=== PATIENT | male | born 1990 | race Caucasian/White ===

== ENCOUNTER 2017-03-29 07:43 | Inpatient (IN) | payer MEDICAID ==
[~2017-03-29] VITALS: Ht 177.8 cm; Wt 79.4 kg
[2017-03-29 07:52] VITALS: BP_SYST 108
[2017-03-29 09:11] LABS: HEMATOCRIT 49.8 % (36-54); HEMOGLOBIN 16.2 g/dL (14.0-18.0); MEAN CORPUSCULAR HEMOGLOBIN 31 pg (27-31); MEAN CORPUSCULAR HGB CONC 33 % (32-36); MEAN CORPUSCULAR VOLUME 95 fL (79.0-98.0); PLATELET COUNT (AUTO) 229 K/uL (130-430); RED BLOOD CELL COUNT(AUTO) 5.22 MIL/uL (4.2-6.2); RED CELL DISTRIBUTION WIDTH 12.2 % (9.0-15.0)
[2017-03-29 09:18] LABS: WHITE BLOOD COUNT (AUTO) 18.1 K/uL (4.8-10.8)
[2017-03-29 09:24] LABS: CALCIUM 9.6 mg/dL (8.4-11.0); CREATININE 0.93 mg/dL (0.55-1.30); POTASSIUM 3.6 mmol/L (3.5-5.1)
[2017-03-29 09:30] LABS: ALBUMIN 4.8 g/dL (3.4-4.8); TOTAL BILIRUBIN 0.4 mg/dL (0.0-1.0)
[2017-03-29 09:31] LABS: INR 1.1 (0.80-1.20); PROTHROMBIN TIME 10.8 SECS (9.5-12.5)
[2017-03-29 09:52] LABS: BAND % (MANUAL) 5 % (0-6)
[2017-03-29 09:53] LABS: BASOPHILS % (MANUAL) 0 % (0-2); EOSINOPHILS % (MANUAL) 0 % (0-7); LYMPHOCYTES % (MANUAL) 10 % (20-46); MONOCYTES % (MANUAL) 3 % (0-11)
[2017-03-29 10:03] LABS: BILIRUBIN,URINE NEGATIVE (NEGATIVE); CLARITY/URINE SL HAZY (CLEAR); COLOR,URINE YELLOW (YELLOW); GLUCOSE,URINE NEGATIVE (NEGATIVE); KETONES,URINE 3+ (NEGATIVE); LEUKOCYTE ESTERASE ,URINE NEGATIVE (NEGATIVE); NITRITE, URINE NEGATIVE (NEGATIVE); PH,URINE 5.5 (5.0-8.0); PROTEIN URINE TRACE (NEGATIVE); UROBILINOGEN,URINE 0.2 (0.2-1.0)
[2017-03-29 10:04] LABS: BLOOD, URINE TRACE (NEGATIVE)
[2017-03-29 10:08] LABS: BACTERIA,URINE FEW /HPF (None Seen); RBC,URINE 0-3 /HPF (0-3); WBC,URINE 0-3 /HPF (0-3)
[2017-03-29 10:09] LABS: MUCUS,URINE 1+ /LPF (None Seen)
[2017-03-29] MEDS ORDERED: NACL 0.9% 1,000 ML IV ONE (10:30)
[2017-03-29] MEDS ORDERED: cefTRIAXone 1 GM IVPB PREMIX 50 ML IV ONE (10:30)
[2017-03-29] MEDS: cefTRIAXone 1 GM IVPB PREMIX 50 ML IV SCH (11:00)
[2017-03-29] MEDS ORDERED: ACETAMINOPHEN 325 MG TABLET PO PRN (11:00)
[2017-03-29] MEDS ORDERED: TEMAZEPAM 15 MG CAPSULE PO PRN (11:00)
[2017-03-29] MEDS ORDERED: MORPHINE 2 MG/ML INJ. SYRINGE IVP PRN (11:00)
[2017-03-29 11:36] VITALS: BP_SYST 121
[2017-03-29 11:44] VITALS: BP_SYST 121
[2017-03-29] MEDS ORDERED: FLU VACC QS 2017-18(36MOS+)/PF 0.5 ML/SYR SYRINGE I.M. PRN (12:00)
[2017-03-29] MEDS ORDERED: LORazepam 2 MG/ML VIAL IVP PRN (12:30)
[2017-03-29 15:35] VITALS: BP_SYST 122
[2017-03-29 18:18] LABS: BARBITURATE, URINE NEGATIVE (NEG <=200); BENZODIAZEPINE, URINE NEGATIVE (NEG <=150); CANNABINOID, URINE POSITIVE (NEG <=50); COCAINE, URINE NEGATIVE (NEG <=150); METHAMPHETAMINES SCREEN,URINE NEGATIVE (NEG <=500); OPIATE, URINE NEGATIVE (NEG <=100); PHENCYCLIDINE SCREEN,URINE NEGATIVE (NEG <=25); UR TRICYCLIC ANTIDEPRESSANTS NEGATIVE (NEG <=300); URINE AMPHETAMINE NEGATIVE (NEG <=500); URINE METHADONE NEGATIVE (NEG <=200); URINE OXYCODONE SCREEN NEGATIVE (NEG <=100); URINE PROPOXYPHENE SCREEN NEGATIVE (NEG <=300)
[2017-03-29 20:00] VITALS: BP_SYST 111; BP_SYST 116; BP_SYST 127
[2017-03-30] VITALS: BP_SYST 113
[2017-03-30 04:45] VITALS: BP_SYST 111
[2017-03-30 06:49] LABS: CALCIUM 9.4 mg/dL (8.4-11.0); CREATININE 0.78 mg/dL (0.55-1.30); POTASSIUM 3.9 mmol/L (3.5-5.1)
[2017-03-30 06:56] LABS: ALBUMIN 4.3 g/dL (3.4-4.8); TOTAL BILIRUBIN 0.7 mg/dL (0.0-1.0)
[2017-03-30 07:19] LABS: BASOPHILS % (AUTO) 0.3 % (0.0-2.0); EOSINOPHILS # (AUTO) 0.2 K/uL (0.0-0.4); EOSINOPHILS % (AUTO) 2.2 % (0.0-4.0); HEMATOCRIT 48.1 % (36-54); HEMOGLOBIN 15.6 g/dL (14.0-18.0); LYMPHOCYTES # (AUTO) 1.4 K/uL (1.0-5.5); LYMPHOCYTES % (AUTO) 16.2 % (20.5-51.5); MEAN CORPUSCULAR HEMOGLOBIN 31 pg (27-31); MEAN CORPUSCULAR HGB CONC 33 % (32-36); MEAN CORPUSCULAR VOLUME 95 fL (79.0-98.0); MONOCYTES # (AUTO) 0.7 K/uL (0.0-1.0); MONOCYTES % (AUTO) 7.5 % (1.7-9.3); NEUTROPHILS # (AUTO) 6.6 K/uL (1.8-7.7); NEUTROPHILS % (AUTO) 73.8 % (40.0-70.0); PLATELET COUNT (AUTO) 268 K/uL (130-430); RED BLOOD CELL COUNT(AUTO) 5.04 MIL/uL (4.2-6.2); RED CELL DISTRIBUTION WIDTH 12.1 % (9.0-15.0)
[2017-03-30 07:53] LABS: WHITE BLOOD COUNT (AUTO) 8.9 K/uL (4.8-10.8)
[2017-03-30 08:10] VITALS: BP_SYST 113
[2017-03-30] MEDS: cefTRIAXone 1 GM IVPB PREMIX 50 ML IV SCH (11:01)
[2017-03-30 11:35] VITALS: BP_SYST 125
[2017-03-30 11:36] VITALS: BP_SYST 113
== END 2017-03-30 14:00 | disposition home or self-care (01) | DRG 204 ==
LOC: SED 07:43 → STU 11:06
PROVIDERS: ADMIT Internal Medicine Hospice and Palliative Medicine; ATTEND Internal Medicine Hospice and Palliative Medicine
DX: R55 Syncope and collapse (principal); D72.829 Elevated white blood cell count, unspecified; R53.1 Weakness; F12.90 Cannabis use, unspecified, uncomplicated; W18.2XXA Fall in (into) shower or empty bathtub, initial encounter; Y93.E1 Activity, personal bathing and showering
CPT/HCPCS: 36415; 70450-TC; 70551; 71010; 80053; 80307; 81000-TC; 83605; 84484; 85007; 85025; 85027; 85610-TC; 85730-TC; 87040-TC; 87086; 93005; 93306; 96365; 99285; J0696; J7030; J7050; Q2037

== ENCOUNTER 2017-07-19 08:02 | Emergency (ER) | payer SELFPAY ==
[~2017-07-19] VITALS: Ht 177.8 cm; Wt 68.0 kg
[2017-07-19 08:06] VITALS: BP_SYST 121
--- NOTE | 2017-07-19 08:11 | NUR ---
Patient to ER bed 7 to gown for evaluation. Side rails up. Report given to Phillip HERNANDEZ.
--- NOTE | 2017-07-19 08:13 | NUR ---
Pt complains of abdominal pain, 01/28 since last Wednesday. Pt states he was able to have a small bowel movement this morning but after his abdomen started hurting even more. Pt denies N/V, diarrhea, or fever. Pt also complains of weakness and dizziness. Pt is AAO x 4 and ambulatory. No other injuries/complaints per patient or noted.
--- NOTE | 2017-07-19 08:20 | NUR ---
ER Dr. Edwards at bedside examining patient.
--- NOTE | 2017-07-19 08:39 | NUR ---
# 20 gauge angiocath placed to LAC. Use of asceptic technique. Opsite placed over site. Blood return noted. Blood for lab drawn from site. Flushed with 10 cc of normal saline. No evidence of infiltration noted. Patient tolerated well.
--- NOTE | 2017-07-19 08:39 | NUR ---
Pt went to radiology in stable condition.
[2017-07-19 08:44] LABS: BILIRUBIN,URINE NEGATIVE (NEGATIVE); BLOOD, URINE NEGATIVE (NEGATIVE); CLARITY/URINE CLEAR (CLEAR); COLOR,URINE YELLOW (YELLOW); GLUCOSE,URINE NEGATIVE (NEGATIVE); KETONES,URINE NEGATIVE (NEGATIVE); LEUKOCYTE ESTERASE ,URINE NEGATIVE (NEGATIVE); NITRITE, URINE NEGATIVE (NEGATIVE); PH,URINE 8.5 (5.0-8.0); PROTEIN URINE NEGATIVE (NEGATIVE); UROBILINOGEN,URINE 0.2 (0.2-1.0)
--- NOTE | 2017-07-19 08:48 | NUR ---
Pt returned from radiology in stable condition.
[2017-07-19] MEDS: KETOROLAC TROMETHAMINE 30 MG VIAL IVP ONE (08:49)
[2017-07-19] MEDS: NACL 0.9% 1,000 ML IV ONE (08:51)
[2017-07-19 08:52] LABS: BASOPHILS % (AUTO) 0.3 % (0.0-2.0); EOSINOPHILS # (AUTO) 0.1 K/uL (0.0-0.4); EOSINOPHILS % (AUTO) 0.9 % (0.0-4.0); HEMATOCRIT 45.3 % (36-54); HEMOGLOBIN 15.1 g/dL (14.0-18.0); LYMPHOCYTES # (AUTO) 0.9 K/uL (1.0-5.5); LYMPHOCYTES % (AUTO) 11.2 % (20.5-51.5); MEAN CORPUSCULAR HEMOGLOBIN 31 pg (27-31); MEAN CORPUSCULAR HGB CONC 33 % (32-36); MEAN CORPUSCULAR VOLUME 93 fL (79.0-98.0); MONOCYTES # (AUTO) 0.4 K/uL (0.0-1.0); MONOCYTES % (AUTO) 5.3 % (1.7-9.3); NEUTROPHILS % (AUTO) 82.3 % (40.0-70.0); PLATELET COUNT (AUTO) 197 K/uL (130-430); RED BLOOD CELL COUNT(AUTO) 4.86 MIL/uL (4.2-6.2); WHITE BLOOD COUNT (AUTO) 8.4 K/uL (4.8-10.8)
--- NOTE | 2017-07-19 08:52 | NUR ---
Medications were given, pt tolerated well. No adverse reaction, will continue to monitor.
[2017-07-19 08:58] LABS: CALCIUM 9.2 mg/dL (8.4-11.0); CREATININE 0.81 mg/dL (0.55-1.30); POTASSIUM 3.6 mmol/L (3.5-5.1)
[2017-07-19 09:02] LABS: PROTHROMBIN TIME 10.4 SECS (9.5-12.5)
[2017-07-19 09:05] LABS: ALBUMIN 4.4 g/dL (3.4-4.8); TOTAL BILIRUBIN 0.4 mg/dL (0.0-1.0)
--- NOTE | 2017-07-19 10:04 | NUR ---
Patient given written and verbal discharge instructions and verbalizes understanding. ER MD discussed with patient the results and treatment provided. Patient in stable condition. ID arm band removed. IV catheter removed intact and dressing applied, no active bleeding. Rx of MIRALAX, MOTRIN given. Patient educated on pain management and to follow up with PMD. Pain Scale 2/10, MD AWARE. Opportunity for questions provided and answered.
[2017-07-19 10:05] VITALS: BP_SYST 121
== END 2017-07-19 10:04 | disposition home or self-care (01) ==
LOC: SED 08:02
DX: K59.00 Constipation, unspecified (principal)
CPT/HCPCS: 36415; 74176; 80053; 81003; 83690; 85025; 85610; 85730; 96361; 96374; 99285; J1885; J7030

== ENCOUNTER 2018-12-24 00:40 | Emergency (ER) | payer MEDICAID ==
[~2018-12-24] VITALS: Ht 175.3 cm; Wt 70.3 kg
[2018-12-24 00:49] VITALS: BP_SYST 123
--- NOTE | 2018-12-24 00:55 | NUR ---
Patient triaged and placed in waiting room. VSS and patient appears in no acute distress at this time. Accompanied by spouse, awaiting available bed, and MD notified of need for MSE.
--- NOTE | 2018-12-24 01:02 | NUR ---
Patient to ER bed 04 to gown for evaluation. Side rails up. Report given to MARY Orozco.
--- NOTE | 2018-12-24 01:03 | NUR ---
Patient AOx4, ambulatory, presents to ER with complaint of right tooth intermittent pain 10/10 x1 week. Patient states crown fell out x 2 months ago. Patient medicated with 2 doses of Ibuprofen without relief, prompting tonight's visit. Patient states episode of HERNANDEZ due to pain. No other symptoms or complaints.
--- NOTE | 2018-12-24 01:36 | NUR ---
ARTHUR Sorto at bedside examining patient.
[2018-12-24 01:45] VITALS: BP_SYST 116
--- NOTE | 2018-12-24 01:45 | NUR ---
Patient given written and verbal discharge instructions and verbalizes understanding. ER MD discussed with patient the results and treatment provided. Patient in stable condition. ID arm band removed. Rx of Matador given. Patient educated on pain management and to follow up with PMD. Pain Scale 0. Opportunity for questions provided and answered. Medication side effect fact sheet provided. Patient left ER in no acute distress, able to ambulate without difficulty with slow, steady gait with friend at his side.
== END 2018-12-24 01:45 | disposition home or self-care (01) ==
LOC: SED 00:40
DX: K03.81 Cracked tooth (principal); K08.89 Other specified disorders of teeth and supporting structures
CPT/HCPCS: 99283